=== PATIENT | female | born 1990 | race Two or more races ===

== ENCOUNTER → 2020-09-30 | Outpatient (CLI) | payer SELFPAY | LOC: M LABSMTC 11:04 | PROVIDERS: ATTEND Pediatrics | DX: Z20.822 Contact with and (suspected) exposure to COVID-19 (principal) ==

== ENCOUNTER 2021-01-08 03:51 | Inpatient (IN) | payer OTHER, SELFPAY ==
[2021-01-08] VITALS (46 sets, daily range): BP systolic 93–150; BP diastolic 54–84
[~2021-01-08] VITALS: Ht 165.1 cm; Wt 72.1 kg
[2021-01-08] MEDS ORDERED: IRON27TA2 PO (04:19)
[2021-01-08] MEDS ORDERED: VITA100T59 PO (04:19)
[2021-01-08] MEDS ORDERED: PRENTAB9 PO (04:19)
[2021-01-08] MEDS ORDERED: LACTATED RINGER'S 1000 ML IV STA (06:25)
[2021-01-08] MEDS ORDERED: OXYTOCIN DRIP 30 UNITS in IV 1 EA IV PRN (06:25)
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
[2021-01-08 07:03] LABS: HEMATOCRIT 40.4 % (36.0-47.0); HEMOGLOBIN 13.8 g/dl (12.0-15.5); MEAN CORPUSCULAR HGB CONC 34.2 g/dl (32.0-36.5); MEAN CORPUSCULAR VOLUME 93.7 fl (80.0-96.0); PLATELET COUNT, AUTOMATED 213 10^3/uL (150-450); RED BLOOD COUNT 4.31 10^6/uL (4.00-5.40); WHITE BLOOD COUNT 15.1 10^3/uL (4.0-10.0)
[2021-01-08] MEDS ORDERED: FENTANYL 2MCG/ML ROPIVACAINE 0.2% IN 0.9% NACL 100ML IVBAG As Ordered ONE (07:52)
[2021-01-08] MEDS ORDERED: diphenhydrAMINE 50MG/ML VIAL (J1200) IV PRN (08:10)
[2021-01-08] MEDS ORDERED: LACTATED RINGER'S 1000 ML IV PRN (08:10)
[2021-01-08] MEDS ORDERED: EPIDURAL/PCA KEYS XX PRN (08:10)
[2021-01-08] MEDS ORDERED: ONDANSETRON 4MG/2ML VIAL IV PRN (08:10)
[2021-01-08] MEDS ORDERED: REFRIGERATOR IV KEYS XX PRN (08:10)
[2021-01-08] MEDS ORDERED: ePHEDrine SULFATE 25 MG/5 ML(5MG/ML) SYRINGE IV PRN (08:10)
[2021-01-08] MEDS ORDERED: NALOXONE INJ 0.4MG/1ML VIAL (J2310 PER 1MG) IV PRN (08:10)
[2021-01-08] MEDS ORDERED: EPIDURAL COMMENT XX SCH (08:10)
[2021-01-08] MEDS: FENTANYL/ROPIVACAINE/NACL BAG 100 ML EPIDURAL SCH ×2 (08:31→16:19)
[2021-01-08] MEDS: LR 1,000 ML IV SCH ×2 (08:41→14:22)
--- NOTE | 2021-01-08 10:37 | IPNPDOC ---
Obstetrical Progress Note Date of Service Jan 08, 2021 Subjective 30yo giovany [id number] @39+4 in active labor at term Objective Vital Signs Date Time Temp Pulse Resp B/P (MAP) Pulse Ox O2 Delivery O2 Flow Rate FiO2 01/08/21 09:06 85 18 93/54 (67) 01/08/21 08:34 98.2 Assessment Heart Rate (FHR): 120 Variability: Moderate Accelerations: Positive Decelerations: None Heart Rate Tracing: Category I Tocometer Contractions: Yes Frequency: every 2-5 min. Duration: greater than 60 seconds Strength: palpated as moderate Sterile Vaginal Examination Dilation: 5 cm Effacement (%): 100% (-6) Station: -2 Cervical Consistency: Soft Cervical Position: Middle Postion/Presentation: Cephalic presentation Assessment and Plan Age: 30 : 1 Term: 0 Pre-term: 0 Abortions: 0 Livin EGA at Admission: 39 (+4) Status: Reassuring Group B Streptococcus: Negative Anticipate: Vaginal Delivery Additional Comments AROM clear with exam. Reviewed plan of care with patient questions asked and answered about pitocin. Pitocin is not indicated at this time. Will re- evaluate as appropriate. lr @125ml/hr, epidural infusion, continuous efm x2, monitor for change in or maternal status, evaluate for change as indicated, anticipate vaginal delivery. EVIE SPICER CNM Jan 08, 2021 10:37
--- NOTE | 2021-01-08 15:15 | IPNPDOC ---
Obstetrical Progress Note Date of Service Jan 08, 2021 Subjective pt c/o right hip pain Objective Vital Signs Date Time Temp Pulse Resp B/P (MAP) Pulse Ox O2 Delivery O2 Flow Rate FiO2 01/08/21 13:15 95 18 124/76 (92) 01/08/21 11:43 98.2 Assessment Heart Rate (FHR): 130 Variability: Minimal to moderate Accelerations: Positive Decelerations: Early Heart Rate Tracing: Category II Tocometer Contractions: Yes Frequency: regular (q2-3 min) Duration: greater than 60 seconds Strength: palpated as strong Sterile Vaginal Examination Dilation: 8 cm Effacement (%): 100% Station: -1, 0 Cervical Consistency: Soft Cervical Position: Middle Postion/Presentation: Cephalic presentation Assessment and Plan Age: 30 : 1 Term: 0 Pre-term: 0 Abortions: 0 Livin Weeks & Days 39+4 Status: Reassuring Group B Streptococcus: Negative Anticipate: Vaginal Delivery Additional Comments Pt repositioned with a peanut ball and hip massaged. Pt continued to c/o pain after 25 min. Cervical exam 8/100/-1,0 with clear fluid and mild bloody show. Repositioned to exaggerated right lateral position with peanut ball. Pt stated improved comfort with position change and accels noted in tracing. LR@125, efm x2, monitor for change in or maternal status, encourage frequent maternal position changes, evaluate for change as indicated, anticipate vaginal delivery. EVIE SPICER CNM Jan 08, 2021 15:15
--- NOTE | 2021-01-08 17:21 | IPNPDOC ---
Text Note Date of Service The patient was seen on 01/08/21. NOTE Presented to room for assessment of progress. Jenna is comfortable with her epidural, but feels some lower pelvic pressure. Chaperoned by RN Cervix: AL/C/+1. FHR Cat I with moderate variability, +accels, +early decels. Ctx regular. Jenna is progressing well on her own power. Anticipate beginning of second stage soon. All questions answered Sanya VS,Flower, I+O VS, Flower, I+O Laboratory Tests 01/08/21 06:43 Vital Signs Date Time Temp Pulse Resp B/P (MAP) Pulse Ox O2 Delivery O2 Flow Rate FiO2 01/08/21 16:45 95 20 112/63 (79) 01/08/21 16:14 98.6 JANELL MINOR DO Jan 08, 2021 17:21
[2021-01-08 19:58] LABS: CORD GAS ABE V -5.8; CORD GAS O2 SAT V 97.4 %; CORD GAS PCO2 V 31.2 mmHg; CORD GAS PH V 7.379 UNITS; CORD GAS PO2 V 71.7 mmHg; CORD GAS SBC V 19.8 MEQ/L
[2021-01-08] MEDS ORDERED: IBUPROFEN 600MG TAB PO PRN (20:05)
[2021-01-08] MEDS ORDERED: DOCUSATE SODIUM 100MG CAPSULE PO PRN (20:05)
[2021-01-08] MEDS ORDERED: ACETAMINOPHEN TAB 650MG DOSE (2X325MG) PO PRN (20:05)
[2021-01-08] MEDS ORDERED: OXYTOCIN DRIP 30 UNITS in IV 1 EA IV SCH (20:05)
[2021-01-08] MEDS ORDERED: IBUPROFEN 800 MG TAB PO PRN (20:05)
[2021-01-08] MEDS ORDERED: DIBUCAINE 1% OINTMENT 30GM TOP PRN (20:05)
[2021-01-08] MEDS ORDERED: RHOGAM 300 MCG (1500 IU) INJ (J2790) IM SCH (20:05)
[2021-01-08] MEDS ORDERED: MEASLES,MUMPS,RUBELLA VACCINE INJ (MMR-II) (90707) SC SCH (20:05)
[2021-01-08] MEDS ORDERED: PROMETHAZINE 25 MG TAB PO PRN (20:05)
[2021-01-08] MEDS ORDERED: ACETAMINOPHEN 500 MG TAB PO PRN (20:05)
--- NOTE | 2021-01-08 20:17 | DNPDOC ---
[facility] Delivery Note Delivery Note DATE OF DELIVERY: 08Jan2021 at ~1930 PREDELIVERY DIAGNOSIS: 39+4 weeks gestation and active labor POST DELIVERY DIAGNOSIS: Delivered. PROCEDURE: Spontaneous vaginal delivery ELECTROENCEPHALOGRAPH TECHNICIAN: Dr. Segundo ANESTHESIA: Epidural. ESTIMATED BLOOD LOSS: 300 mL. FINDINGS: 9 pound 8 ounce male , Score 8/9, nuchal cord X1 DELIVERY SUMMARY: Jenna progressed steadily in labor after her epidural and AROM. Ultimately she progressed to completely dilated and felt a strong urge to push. Cervival exam confirmed fetus at +1 station. The bed was broken down and she was prepped for delivery. With excellent effort over about an hour and a half of pushing her baby delivered. An episiotomy was made at +4 station to help facilitate delivery. Presentation was KISHA with restitution to ROT. The left anterior shoulder delivered with gentle traction followed easily by the remainder of the body. A nuchal cord was noted, delivered through, and then re duced manually on the field. The infant was dried and stimulated on the field and a bulb suction was used. The initially had poor tone. The three vessel cord was then clamped and cut by the FOB under my direction and the was taken over to the warmer under care of the nurse. Cord gases were drawn. Third stage was completed with gentle traction on on the cord and it was productive of an intact placenta. The uterus was firmed with massage and pitocin was administered IV bolus. Inspection of the cervix, vagina, labia, and perineum revealed a midline 2nd degree perineal laceration (from the episiotomy) that did not extend into the anal sphincter or involve the rectum. This laceration was repaired with 3-0 vicryl suture in the usual fashion. There was excellent cosmesis and hemostasis after the repair. Rectal exam at conclusion of the repair demonstrated no sutures in the rectum. The fundus was palpated again and was firm. Sponge, instrument, and needle counts were correct X2. Mot her and infant stable when I left the room. DO IVÁN Mojica CHRISTOPHER J. DO Jan 08, 2021 20:17
[2021-01-09] MEDS: LR 1,000 ML IV SCH (00:35)
[2021-01-09 06:00] VITALS: BP 109/59
--- NOTE | 2021-01-09 07:23 | IPNPDOC ---
Progress Note Date of Service: Jan 09, 2021 Progress Note Jenna is a 30 yo G1 now P1 who underwent an uncomplicated yesterday evening after being admitted for active labor. No acute events overnight. Jenna reports feeling well this AM. She is ambulating, voiding on her own, tolerating a regular diet, and her pain is well controlled. Vitals - VSS, afebrile, normotensive, non tachycardic General - AAOX3, sitting up in bed, NAD Abdomen - Fundus firm at U-2. No fundal tenderness Extremities - No edema Jenna is doing well and is making an appropriate recovery. Continue routine care. Anticipate discharge home tomorrow. Sanya VS, I&O, 24H, Flower Vital Signs/I&O Vital Signs Date Time Temp Pulse Resp B/P (MAP) Pulse Ox O2 Delivery O2 Flow Rate FiO2 01/09/21 06:00 97.7 100 16 109/59 (76) 98 Room Air I&O- Last 24 Hours up to 6 AM 01/09/21 06:00 Intake Total 3252 ml Output Total 2050 ml Balance 1202 ml Laboratory Data 24H LABS Laboratory Tests 2 01/08/21 19:58: Cord Venous Blood pH 7.379, Cord Venous Blood PCO2 31.2, Cord Venous Blood PO2 71.7, Cord Venous Blood HCO3 18.0, Cord Venous Blood Total CO2 19.0, Cord Venous Base Excess (Actual) -5.8, Cord Venous Base Excess (Standard) 19.8, Cord Venous Blood Oxygen Saturation 97.4 JANELL MINOR DO Jan 09, 2021 07:23
[2021-01-09] MEDS: PRENATAL VITAMINS CHEWABLE TABLET PO SCH (08:12)
[2021-01-09] MEDS ORDERED: ACETAMINOPHEN 325 MG/10.15 ML UDC PO PRN (09:05)
[2021-01-09] MEDS ORDERED: MOM 30ML SUSPENSION UDC PO PRN (09:05)
[2021-01-09] MEDS ORDERED: IBUPROFEN 100 MG/5 ML SUSP UDC DYE FREE PO PRN (10:30)
[2021-01-09] MEDS ORDERED: BOOSTRIX/ADACEL VACCINE (DIPHTH/PERTUSS/ACELL/TETANUS) 0.5ML SYR IM ONE (10:45)
[2021-01-09] MEDS ORDERED: INFLUENZA QUADRIVALENT PF VACCINE 0.5ML SYRINGE IM ONE (10:45)
[2021-01-09] MEDS ORDERED: IBUPROFEN 100 MG/5 ML SUSP UDC DYE FREE PO ONE (11:00)
[2021-01-09 17:47] VITALS: BP 116/70
[2021-01-10 05:59] VITALS: BP 113/71
[2021-01-10] MEDS ORDERED: IBUP100S57 PO (07:16)
[2021-01-10] MEDS ORDERED: DIBU28OI2 TOP (07:16)
[2021-01-10] MEDS ORDERED: ACET325S6 PO (07:16)
--- NOTE | 2021-01-10 07:18 | DS.PDOC ---
Discharge Summary General Date of Admission Jan 08, 2021 at 06:48 Date of Discharge Jan 10, 2021 Discharge Summary HOSPITAL COURSE: Ms. Rolly Lin is a 30 yo G1 now P1 who underwent an uncomplicated on 08Jan2021 after being admitted for active labor. Her course was unremarkable. On her day of discharge she met all appropriate discharge criteria. She was ambulating, voiding, tolerating a regular diet, and had minimal lochia. DISCHARGE MEDICATIONS: Please see below. ALLERGIES: Please see below. PHYSICAL EXAMINATION ON DISCHARGE: VITAL SIGNS: Please see below. GENERAL: AAOX3, NAD ABDOMINAL EXAMINATION: Fundus firm at U-2. No fundal tenderness EXTREMITIES: No edema PSYCHIATRIC EXAMINATION: Affect appropriate LABORATORY DATA: Please see below. ACTIVITY: Pelvic rest for 6 weeks DIET: Regular DISCHARGE PLAN: Discharge home DISPOSITION: Discharge home on 10Jan2021. DISCHARGE INSTRUCTIONS: 1. Nothing in the vagina for 6 weeks ITEMS TO FOLLOWUP ON ON OUTPATIENT: 1. Call to schedule a visit for 6 weeks post delivery DISCHARGE CONDITION: Stable. TIME SPENT ON DISCHARGE: Greater than 20 minutes. Janell Segundo DO Vital Signs/I&Os Vital Signs Date Time Temp Pulse Resp B/P (MAP) Pulse Ox O2 Delivery O2 Flow Rate FiO2 01/10/21 05:59 97.4 74 16 113/71 (85) 100 Room Air Discharge Medications Scheduled No.137/Iron/Folic Acd ( Vitamin Tablet) 1 Each Tablet, 1 TAB PO DAILY, (Reported) Scheduled PRN Acetaminophen (Acetaminophen) 325 Mg/10.15 Ml Solution, 650 MG PO Q6HP PRN for pain Dibucaine (Dibucaine) 28 Gm Oint...g., 0 DOSE TOP Q4H PRN for PAIN Ibuprofen (Children's Ibuprofen) 100 Mg/5 Ml Oral.susp, 800 MG PO Q8HP PRN for PAIN LEVEL 6-10 Allergies Coded Allergies: No Known Allergies (Unverified , 01/08/21) JANELL SEGUNDO DO Jan 10, 2021 07:18
[2021-01-10] MEDS: PRENATAL VITAMINS CHEWABLE TABLET PO SCH (09:19)
== END 2021-01-10 13:15 | disposition home or self-care (01) | DRG 807 ==
LOC: M LDO 03:51 → M LDI 06:48 → M OBS 23:06
PROVIDERS: ADMIT Obstetrics & Gynecology; ATTEND Obstetrics & Gynecology
PROC: 10E0XZZ Delivery of Products of Conception, External Approach (ICD-10-PCS; principal; 2021-01-08)
PROC: 0KQM0ZZ Repair Perineum Muscle, Open Approach (ICD-10-PCS; 2021-01-08)
PROC: 10907ZC Drainage of Amniotic Fluid, Therapeutic from Products of Conception, Via Natural or Artificial Opening (ICD-10-PCS; 2021-01-08)
DX: O99.02 Anemia complicating childbirth (principal); Z37.0 Single live birth; D64.9 Anemia, unspecified; Z3A.39 39 weeks gestation of pregnancy; O69.81X0 Labor and delivery complicated by cord around neck, without compression, not applicable or unspecified; O70.1 Second degree perineal laceration during delivery

== ENCOUNTER → 2022-10-10 | Outpatient (CLI) | payer OTHER ==
[~2022-10-10] MED LIST: ACET325S6 PO; DIBU28OI2 TOP; IBUP-1824 PO; IRON27TA2 PO; PRENTAB9 PO; VITA100T59 PO
== END ==
LOC: M WHC 12:57
PROVIDERS: ATTEND Nurse Practitioner Women's Health
DX: Z48.3 Aftercare following surgery for neoplasm (principal)

== ENCOUNTER 2022-11-15 06:44 | Inpatient (IN) | payer OTHER ==
[2022-11-15] VITALS (9 sets, daily range): BP systolic 95–124; BP diastolic 51–65
[~2022-11-15] VITALS: Ht 165.1 cm; Wt 74.0 kg
[2022-11-15] MEDS ORDERED: LACTATED RINGER'S 1000 ML IV STA (07:19)
[2022-11-15] MEDS ORDERED: PENICILLIN G POTASSIUM 5 MU IV 5 MU in D5W MINI-BAG PLUS 100 ML IV STA (07:19)
[2022-11-15] MEDS ORDERED: OXYTOCIN DRIP 30 UNITS in IV 1 EA IV PRN ×4 (07:20)
[2022-11-15] MEDS ORDERED: LIDOCAINE 1% MDV 20ML VIAL INFIL PRN (07:20)
[2022-11-15] MEDS ORDERED: METHYLERGONOVINE MALEATE 0.2MG/ML 1ML VIAL IM PRN (07:20)
[2022-11-15] MEDS ORDERED: TRANEXAMIC ACID INJection 1,000 MG in NS 100 ML IV PRN (07:20)
[2022-11-15] MEDS ORDERED: OXYTOCIN 30UNITS IN 0.9% NaCl 500ML IV BAG As Ordered ONE (07:38)
[2022-11-15] MEDS ORDERED: ANUSOL HC CREAM 30GM TOP PRN (08:20)
[2022-11-15] MEDS ORDERED: RHOGAM 300MCG (1500IU) INJ IM SCH (08:20)
[2022-11-15] MEDS ORDERED: ACETAMINOPHEN 500 MG TAB PO PRN (08:20)
[2022-11-15] MEDS ORDERED: LIDOCAINE 1% MDV 20ML VIAL INFIL ONE (08:20)
[2022-11-15] MEDS ORDERED: IBUPROFEN 600MG TAB PO PRN (08:20)
[2022-11-15] MEDS ORDERED: ACETAMINOPHEN TAB 650MG DOSE (2X325MG) PO PRN (08:20)
[2022-11-15] MEDS ORDERED: OXYTOCIN DRIP 30 UNITS in IV 1 EA IV SCH ×4 (08:20)
[2022-11-15] MEDS ORDERED: METHYLERGONOVINE MALEATE 0.2MG/ML 1ML VIAL IM ONE (08:20)
[2022-11-15] MEDS ORDERED: DOCUSATE SODIUM 100MG CAPSULE PO PRN (08:20)
[2022-11-15] MEDS ORDERED: TRANEXAMIC ACID INJection 1,000 MG in NS 100 ML IV ONE (08:20)
[2022-11-15] MEDS ORDERED: METHYLERGONOVINE MALEATE 0.2 MG TAB PO PRN (08:20)
[2022-11-15] MEDS ORDERED: DIBUCAINE 1% OINTMENT 30GM TOP PRN (08:20)
[2022-11-15] MEDS ORDERED: IBUPROFEN 800 MG TAB PO PRN (08:20)
[2022-11-15] MEDS: LR 1,000 ML IV SCH ×2 (08:23→15:20)
[2022-11-15 08:26] LABS: CORD GAS ABE A -5.4; CORD GAS HCO3 A 22.4 MEQ/L; CORD GAS O2 SAT A 41.1 %; CORD GAS PCO2 A 52.4 mmHg; CORD GAS PH A 7.249 UNITS; CORD GAS PO2 A 19.9 mmHg; CORD GAS SBC A 18.8 MEQ/L
[2022-11-15 08:28] LABS: CORD GAS ABE V -4.3; CORD GAS HCO3 V 21.8 MEQ/L; CORD GAS O2 SAT V 73.6 %; CORD GAS PCO2 V 43.7 mmHg; CORD GAS PH V 7.316 UNITS; CORD GAS PO2 V 32.2 mmHg; CORD GAS SBC V 20.3 MEQ/L; CORD GAS TCO2 V 23.1 MEQ/L
[2022-11-15] MEDS: PRENATAL VITAMINS CHEWABLE TABLET PO SCH (09:00)
[2022-11-15] MEDS ORDERED: IRON1TAB2 PO (09:12)
[2022-11-15] MEDS ORDERED: VITA100T59 PO (09:12)
[2022-11-15 09:23] LABS: HEMATOCRIT 36.2 % (36.0-47.0); MEAN CORPUSCULAR HEMOGLOBIN 30.4 pg (27.0-33.0); MEAN CORPUSCULAR HGB CONC 33.1 g/dl (32.0-36.5); MEAN CORPUSCULAR VOLUME 91.6 fl (80.0-96.0); PLATELET COUNT, AUTOMATED 205 10^3/uL (150-450); RED BLOOD COUNT 3.95 10^6/uL (4.00-5.40); WHITE BLOOD COUNT 11.7 10^3/uL (4.0-10.0)
[2022-11-15] MEDS ORDERED: PEN G POT 3,000,000 UNIT/50 ML 3,000,000 UNIT in IV 1 EA IV SCH (11:20)
[2022-11-16 06:00] VITALS: BP 105/57
[2022-11-16 07:00] LABS: HEMATOCRIT 33.1 % (36.0-47.0); HEMOGLOBIN 10.8 g/dl (12.0-15.5); MEAN CORPUSCULAR HEMOGLOBIN 30.3 pg (27.0-33.0); MEAN CORPUSCULAR HGB CONC 32.6 g/dl (32.0-36.5); PLATELET COUNT, AUTOMATED 192 10^3/uL (150-450); RED BLOOD COUNT 3.56 10^6/uL (4.00-5.40); WHITE BLOOD COUNT 14.1 10^3/uL (4.0-10.0)
[2022-11-16] MEDS: PRENATAL VITAMINS CHEWABLE TABLET PO SCH (09:51)
[2022-11-16 18:00] VITALS: BP 102/60
[2022-11-17] MEDS ORDERED: MEASLES,MUMPS,RUBELLA VACCINE INJ (MMR-II) SC.IMMUN ONE (09:00)
== END 2022-11-16 18:55 | disposition home or self-care (01) | DRG 807 ==
LOC: M LDO 06:44 → M LDI 07:26 → M OBS 10:08
PROVIDERS: ADMIT Advanced Practice Midwife; ATTEND Advanced Practice Midwife
PROC: 10E0XZZ Delivery of Products of Conception, External Approach (ICD-10-PCS; principal; 2022-11-15)
PROC: 0HQ9XZZ Repair Perineum Skin, External Approach (ICD-10-PCS; 2022-11-15)
DX: O62.3 Precipitate labor (principal); Z37.0 Single live birth; Z3A.38 38 weeks gestation of pregnancy; O66.0 Obstructed labor due to shoulder dystocia; O99.824 Streptococcus B carrier state complicating childbirth; O70.0 First degree perineal laceration during delivery